=== PATIENT | male | born 1995 | race African-American/Black ===

== ENCOUNTER 2021-06-18 19:18 | Emergency (ER) | payer OTHER ==
[~2021-06-18] VITALS: Ht 170 cm; Wt 77.1 kg
[2021-06-18 20:05] VITALS: BP 127/83
--- NOTE | 2021-06-18 20:22 | ED General ---
General Chief Complaint: Cough/Cold/Flu Symptoms Stated Complaint: CHILLS, BODY ACHES Nursing Triage Note: PT ARRIVES PER POV W/ C/O FEVER, CHILLS, AND DIARRHEA W/ ONSET 2 DAYS AGO. AMBULATORY TO ROOM, VS OBTAINED. Source of Information: Patient Exam Limitations: No Limitations History of Present Illness Date Seen by Provider: Jun 18, 2021 Time Seen by Provider: 20:21 Initial Comments To ER with chills body aches no fever and diarrhea that began 2 days ago. No abdominal pain no sore throat no cough no nausea or vomiting. Timing/Duration: 1-2 Days Severity: Moderate Associated Systoms: Fever/Chills (Chills but no fever), Malaise Allergies and Home Medications Patient Home Medication List Home Medication List Reviewed: Yes Review of Systems Review of Systems Constitutional: see HPI EENTM: see HPI Respiratory: no symptoms reported Cardiovascular: no symptoms reported Gastrointestinal: No abdominal pain; diarrhea; No nausea, No vomiting Genitourinary: no symptoms reported Musculoskeletal: no symptoms reported Skin: no symptoms reported Psychiatric/Neurological: No Symptoms Reported Hematologic/Lymphatic: No Symptoms Reported Immunological/Allergic: no symptoms reported Physical Exam Vital Signs Vital Signs - First Documented 06/18/21 20:05 Temp 37.7 Pulse 83 Resp 20 B/P (MAP) 127/83 (98) Pulse Ox 99 O2 Delivery Room Air Capillary Refill : Less Than 3 Seconds Height, Weight, BMI Height: '" Weight: lbs. oz. kg; 26.00 BMI Method: General Appearance: No Apparent Distress, WD/WN Eyes: Bilateral Eye Normal Inspection, Bilateral Eye PERRL, Bilateral Eye EOMI HEENT: PERRL/EOMI, TMs Normal Neck: Full Range of Motion, Normal Inspection Respiratory: No Accessory Muscle Use, No Respiratory Distress Cardiovascular: Regular Rate, Rhythm, Normal Peripheral Pulses Gastrointestinal: Normal Bowel Sounds, Non Tender, Soft Extremity: Normal Capillary Refill, Normal Inspection Neurologic/Psychiatric: Alert, Oriented x3 Skin: Normal Color, Warm/Dry Progress/Results/Core Measures Suspected Sepsis SIRS Temperature: Pulse: 83 Respiratory Rate: 20 Blood Pressure 127 /83 Mean: 98 Results/Orders Lab Results Laboratory Tests Test 06/18/21 20:10 Range/Units Influenza Type A (RT-PCR) Not Detected Not Detecte Influenza Type B (RT-PCR) Not Detected Not Detecte SARS-CoV-2 RNA (RT-PCR) Not Detected Not Detecte My Orders Orders - DADA TOLEDO APRN Covid 19 Inhouse Test (06/18/21 20:19) Influenza A And B By Pcr (06/18/21 20:19) Vital Signs/I&O 06/18/21 20:05 Temp 37.7 Pulse 83 Resp 20 B/P (MAP) 127/83 (98) Pulse Ox 99 O2 Delivery Room Air Capillary Refill : Less Than 3 Seconds Blood Pressure Mean: 98 Departure Impression Primary Impression: Viral syndrome Disposition: 01 HOME, SELF-CARE Condition: Stable Departure-Patient Inst. Decision time for Depature: 20:58 Referrals: [facility] (PCP/Family) Primary Care Physician Patient Instructions: Viral Syndrome (DC) Add. Discharge Instructions: 1. Use Tylenol and ibuprofen for fevers or body aches. You can use [id number] Imodium for diarrhea. Pedialyte is a good choice for rehydration. All discharge instructions reviewed with patient and/or family. Voiced u nderstanding. Work/School Note: Work Release Form Date Seen in the Emergency Department: Jun 18, 2021 Return to Work: Jun 20, 2021 DADA TOLEDO APRN Jun 18, 2021 20:22
== END 2021-06-18 21:07 | disposition home or self-care (01) ==
LOC: ER 19:27
DX: B34.9 Viral infection, unspecified (principal); Z20.822 Contact with and (suspected) exposure to COVID-19
CPT/HCPCS: 87636; 99283